=== PATIENT | male | born 1940 | race Caucasian/White ===

== ENCOUNTER 2018-03-15 12:35 | Inpatient (IN) | payer MEDICARE ==
[~2018-03-15] VITALS: Ht 185.4 cm; Wt 75.7 kg
[2018-03-15] MEDS ORDERED: DIPH,PERTUSS(ACELL),TET VAC/PF 0.5 ML IM-VACC ONE ×2 (13:00→14:00)
[2018-03-15] MEDS ORDERED: SODIUM CHLORIDE FLUSH 10ML SYR IVF ONE (13:00)
[2018-03-15 13:06] LABS: BASOPHILS # (AUTO) 0.04 x10^3/uL (0-0.1); BASOPHILS % (AUTO) 0 % (0-1); EOSINOPHILS # (AUTO) 0.23 x10^3/uL (0-0.4); EOSINOPHILS % (AUTO) 3 % (1-7); LYMPHOCYTES # (AUTO) 1.46 x10^3/uL (1-3.4); LYMPHOCYTES % (AUTO) 18 % (22-44); MD NO; MEAN CORPUSCULAR HEMOGLOBIN 29.2 pg (27.5-34.5); MEAN CORPUSCULAR HGB CONC 33.3 g/dL (33.2-36.2); MEAN CORPUSCULAR VOLUME 87.7 fL (81-97); MEAN PLATELET VOLUME 8.7 fL (7.4-10.4); MONOCYTES % (AUTO) 5 % (2-9); NEUTROPHILS # (AUTO) 6.02 x10^3/uL (1.8-6.8); NEUTROPHILS % (AUTO) 74 % (42-75); PLATELET COUNT 206 x10^3/uL (130-400); RED BLOOD COUNT 5.59 x10^6/uL (4.38-5.82); RED CELL DISTRIBUTION WIDTH 14.5 % (9.4-14.8)
[2018-03-15 13:14] LABS: INTERNATIONAL NORMALIZED RATIO 1.03 (0.93-1.1); PROTHROMBIN TIME 10.7 Seconds (9.6-11.5)
[2018-03-15 13:18] LABS: ALBUMIN 3.9 g/dL (3.4-5.0); ANION GAP 9 mmol/L (5-15); CALCIUM 8.6 mg/dL (8.5-10.1); CHLORIDE 105 mmol/L (98-107)
[2018-03-15 13:23] LABS: ALANINE AMINOTRANSFERASE 20 U/L (12-78); ALKALINE PHOSPHATASE 97 U/L (45-117); BILIRUBIN,TOTAL 0.6 mg/dL (0.2-1.0); CREATININE 0.88 mg/dL (0.7-1.3); TOTAL PROTEIN 7.8 g/dL (6.4-8.2); TROPONIN I < 0.015 ng/mL (0.000-0.045)
[2018-03-15] MEDS ORDERED: LISINOPRIL 10 MG TABLET PO ONE (14:00)
[2018-03-15] MEDS ORDERED: LISINOPRIL 10 MG TABLET ONE (14:00)
[2018-03-15] MEDS ORDERED: SODIUM CHLORIDE FLUSH 10ML SYR IVF PRN (14:30)
[2018-03-15] MEDS ORDERED: LABETALOL 5MG/ML, 20ML IVPush PRN (15:30)
[2018-03-15] MEDS ORDERED: hydrALAzine 20 MG/ML, 1ML IVPush PRN (15:30)
[2018-03-15] MEDS ORDERED: ACETAMINOPHEN 325 MG TABLET PO PRN (15:30)
[2018-03-15 15:59] VITALS: BP 197/76
[2018-03-15] MEDS ORDERED: LABETALOL 5MG/ML, 20ML ONE (16:02)
[2018-03-15] MEDS ORDERED: CARVEDILOL 6.25 MG TABLET ONE (16:02)
[2018-03-15] MEDS: CARVEDILOL 6.25 MG TABLET PO SCH (16:06)
[2018-03-15 16:11] VITALS: BP 173/82
[2018-03-15] MEDS ORDERED: HYDROCHLOROTHIAZIDE 25 MG TABLET PO ONE (16:30)
[2018-03-15] MEDS ORDERED: ENOXAPARIN 40 MG/0.4 ML SQ SCH (16:30)
[2018-03-15 16:33] VITALS: BP 152/74
[2018-03-15] MEDS: LACTATED RINGERS 1,000 ML IV SCH (16:36)
[2018-03-15 19:14] VITALS: BP 164/76
[2018-03-16] VITALS (7 sets, daily range): BP systolic 121–160; BP diastolic 70–80
[2018-03-16] MEDS: LACTATED RINGERS 1,000 ML IV SCH
[2018-03-16 05:24] LABS: BASOPHILS # (AUTO) 0.06 x10^3/uL (0-0.1); BASOPHILS % (AUTO) 1 % (0-1); EOSINOPHILS # (AUTO) 0.32 x10^3/uL (0-0.4); EOSINOPHILS % (AUTO) 4 % (1-7); LYMPHOCYTES # (AUTO) 1.93 x10^3/uL (1-3.4); LYMPHOCYTES % (AUTO) 21 % (22-44); MD NO; MEAN CORPUSCULAR HGB CONC 33.5 g/dL (33.2-36.2); MEAN CORPUSCULAR VOLUME 86.4 fL (81-97); MEAN PLATELET VOLUME 8.9 fL (7.4-10.4); MONOCYTES # (AUTO) 0.65 x10^3/uL (0.2-0.8); MONOCYTES % (AUTO) 7 % (2-9); NEUTROPHILS # (AUTO) 6.21 x10^3/uL (1.8-6.8); NEUTROPHILS % (AUTO) 68 % (42-75); PLATELET COUNT 186 x10^3/uL (130-400); RED BLOOD COUNT 5.43 x10^6/uL (4.38-5.82); RED CELL DISTRIBUTION WIDTH 14.6 % (9.4-14.8)
[2018-03-16 05:32] LABS: ANION GAP 9 mmol/L (5-15); CALCIUM 8.8 mg/dL (8.5-10.1); CHLORIDE 106 mmol/L (98-107)
[2018-03-16] MEDS: CARVEDILOL 6.25 MG TABLET PO SCH (05:57)
[2018-03-16] MEDS ORDERED: HYDROCHLOROTHIAZIDE 25 MG TABLET PO SCH (09:00)
[2018-03-16] MEDS ORDERED: HYDR25TA6 PO (10:13)
[2018-03-16] MEDS ORDERED: CARV6.2512 PO (10:13)
== END 2018-03-16 14:02 | disposition home or self-care (01) | DRG 305 ==
LOC: ED 14:04 → EDIP 14:09 → ED 14:22 → 5SO 15:50 → DCLOUNGE 03-16 13:54
PROVIDERS: ADMIT Hospitalist; ATTEND Hospitalist
DX: I16.0 Hypertensive urgency (principal); E86.0 Dehydration; I35.8 Other nonrheumatic aortic valve disorders; E86.1 Hypovolemia; R00.0 Tachycardia, unspecified; Z66 Do not resuscitate; W18.39XA Other fall on same level, initial encounter; I10 Essential (primary) hypertension; Z79.899 Other long term (current) drug therapy; Y93.89 Activity, other specified; Y92.89 Other specified places as the place of occurrence of the external cause; Y99.8 Other external cause status
CPT/HCPCS: 36415; 70450; 70486; 71045; 80048; 80053; 83735; 84484; 85025; 85610; 85730; 93005; 93306; 99285; J1650; J7120

== ENCOUNTER 2019-09-14 09:38 | Observation (INO) | payer MEDICARE, MEDICAID ==
[~2019-09-14] VITALS: Ht 180.3 cm; Wt 63.8 kg
[~2019-09-14 09:38] MED LIST: CARV6.2512 PO; HYDR25TA6 PO
--- NOTE | 2019-09-14 09:54 | NUR ---
"NO CODE NEURO" PER DR HOLLOWAY HE ASSESSED PT IN TRIAGE
--- NOTE | 2019-09-14 10:00 | NUR ---
PATIENT BROUGHT BACK FROM TRIAGE WITH CHIEF COMPLAINT OF FEELING OFF, PATIENT STATES HE DEVELOPED A STUTTER SPEAKING AND TREMORS THIS MORNING. THE PATIENT IS ALERT, ORIENTED, WARM, & DRY. SPEACH HAS IMPROVED, HOWEVER TREMORS STILL PRESENT. NO OTHER NEURO DEFECITS AT THIS TIME, NO CP, SOB, OR N/V.
[2019-09-14 10:19] LABS: BASOPHILS # (AUTO) 0.04 x10^3/uL (0-0.1); BASOPHILS % (AUTO) 0 % (0-1); EOSINOPHILS # (AUTO) 0.35 x10^3/uL (0-0.4); EOSINOPHILS % (AUTO) 4 % (1-7); LYMPHOCYTES # (AUTO) 1.55 x10^3/uL (1-3.4); LYMPHOCYTES % (AUTO) 19 % (22-44); MD NO; MEAN CORPUSCULAR HEMOGLOBIN 29.7 pg (27.5-34.5); MEAN CORPUSCULAR HGB CONC 32.9 g/dL (33.2-36.2); MEAN PLATELET VOLUME 8.6 fL (7.4-10.4); MONOCYTES # (AUTO) 0.36 x10^3/uL (0.2-0.8); MONOCYTES % (AUTO) 4 % (2-9); NEUTROPHILS % (AUTO) 72 % (42-75); PLATELET COUNT 242 x10^3/uL (130-400); RED BLOOD COUNT 5.45 x10^6/uL (4.38-5.82); RED CELL DISTRIBUTION WIDTH 15.5 % (9.4-14.8)
[2019-09-14 10:30] LABS: ALANINE AMINOTRANSFERASE 17 U/L (12-78); ALBUMIN 4.2 g/dL (3.4-5.0); ANION GAP 9 mmol/L (5-15); CALCIUM 8.7 mg/dL (8.5-10.1); CHLORIDE 104 mmol/L (98-107); CREATININE 0.89 mg/dL (0.7-1.3)
[2019-09-14 10:34] LABS: ALKALINE PHOSPHATASE 103 U/L (45-117); BILIRUBIN,TOTAL 0.7 mg/dL (0.2-1.0); TOTAL PROTEIN 8.1 g/dL (6.4-8.2); TROPONIN I < 0.015 ng/mL (0.000-0.045)
--- NOTE | 2019-09-14 10:45 | NUR ---
PATIENT TO CT
[2019-09-14 10:57] LABS: FREE T4 (FREE THYROXINE) 1.04 ng/dL (0.76-1.46)
[2019-09-14 11:09] LABS: CULTURE INDICATED? YES; MICROSCOPIC INDICATED
--- NOTE | 2019-09-14 11:23 | NUR ---
PATIENT RESTING IN BED
[2019-09-14] MEDS ORDERED: CEFTRIAXONE PMX 1GM/50ML 50 ML IV ONE (12:00)
[2019-09-14] MEDS ORDERED: CEFTRIAXONE PMX 1GM/50ML 50 ML ONE (12:02)
--- NOTE | 2019-09-14 12:46 | NUR ---
Patient is resting comfortably in bed. CALL LIGHT IN REACH Vital Signs within normal limits.
--- NOTE | 2019-09-14 13:10 | NUR ---
REPORT CALLED TO NEL HANCOCK. PATIENT UPDATED ON POC.
[2019-09-14] MEDS: CEFTRIAXONE PMX 1GM/50ML 50 ML IV SCH (14:30)
[2019-09-14] MEDS ORDERED: ACETAMINOPHEN 325 MG TABLET PO PRN (14:30)
[2019-09-14 16:49] LABS: HEMOGLOBIN A1C 5.6 % (4.2-6.3)
[2019-09-14] MEDS: CARVEDILOL 6.25 MG TABLET PO SCH (17:31)
[2019-09-14 19:06] VITALS: BP 179/92
[2019-09-14] MEDS ORDERED: hydrALAzine 20 MG/ML, 1ML IV ONE (19:30)
[2019-09-15 00:33] VITALS: BP 123/64
[2019-09-15 05:27] LABS: BASOPHILS # (AUTO) 0.05 x10^3/uL (0-0.1); BASOPHILS % (AUTO) 1 % (0-1); EOSINOPHILS # (AUTO) 0.39 x10^3/uL (0-0.4); EOSINOPHILS % (AUTO) 5 % (1-7); LYMPHOCYTES # (AUTO) 1.77 x10^3/uL (1-3.4); LYMPHOCYTES % (AUTO) 21 % (22-44); MD NO; MEAN CORPUSCULAR HEMOGLOBIN 29.5 pg (27.5-34.5); MEAN CORPUSCULAR HGB CONC 32.8 g/dL (33.2-36.2); MEAN PLATELET VOLUME 8.5 fL (7.4-10.4); MONOCYTES % (AUTO) 7 % (2-9); NEUTROPHILS # (AUTO) 5.76 x10^3/uL (1.8-6.8); NEUTROPHILS % (AUTO) 67 % (42-75); PLATELET COUNT 217 x10^3/uL (130-400); RED BLOOD COUNT 5.09 x10^6/uL (4.38-5.82); RED CELL DISTRIBUTION WIDTH 15.2 % (9.4-14.8)
[2019-09-15] MEDS: LEVOTHYROXINE 25 MCG TABLET PO SCH (05:32)
[2019-09-15] MEDS: CARVEDILOL 6.25 MG TABLET PO SCH ×2 (05:33→20:14)
[2019-09-15 05:35] LABS: ANION GAP 6 mmol/L (5-15); CALCIUM 8.4 mg/dL (8.5-10.1); CHLORIDE 109 mmol/L (98-107)
[2019-09-15 05:36] LABS: CREATININE 0.65 mg/dL (0.7-1.3)
[2019-09-15 06:57] VITALS: BP 130/75
[2019-09-15 12:58] VITALS: BP 128/72
[2019-09-15] MEDS: CEFTRIAXONE PMX 1GM/50ML 50 ML IV SCH (14:34)
[2019-09-15] MEDS: CEFAZOLIN PMX 1GM/50ML 50 ML IV SCH ×2 (16:20→23:55)
[2019-09-15] MEDS ORDERED: ENOXAPARIN 40 MG/0.4 ML SQ SCH (16:30)
[2019-09-15 18:37] VITALS: BP 157/74
[2019-09-16 04:46] VITALS: BP 144/82
[2019-09-16] MEDS: CARVEDILOL 6.25 MG TABLET PO SCH (05:26)
[2019-09-16] MEDS: LEVOTHYROXINE 25 MCG TABLET PO SCH (05:27)
[2019-09-16 06:44] VITALS: BP 118/62
[2019-09-16] MEDS: CEFAZOLIN PMX 1GM/50ML 50 ML IV SCH (07:31)
[2019-09-16] MEDS ORDERED: CEPH-368 PO (09:58)
[2019-09-16 12:09] VITALS: BP 150/77
== END 2019-09-16 13:27 | disposition home or self-care (01) ==
LOC: ED 13:03 → INTOOBSV 13:04 → EDIP 13:04 → UNDOADMOB 13:04 → EDIP 13:27 → 3N 13:27 → DCLOUNGE 09-16 13:25
PROVIDERS: ADMIT Internal Medicine; ATTEND Internal Medicine
DX: N30.91 Cystitis, unspecified with hematuria (principal); R53.1 Weakness; G31.9 Degenerative disease of nervous system, unspecified; I10 Essential (primary) hypertension; E03.9 Hypothyroidism, unspecified; R73.01 Impaired fasting glucose
CPT/HCPCS: 36415; 70450; 71045; 80048; 80053; 81001; 83036; 84439; 84443; 84484; 85025; 87077; 87086; 87186; 93005; 96365; 96366; 96367; 96375; 97162; 97165; 99284; G0378; J0360; J0690; J0696

== ENCOUNTER 2019-09-30 15:00 | Emergency (ER) | payer MEDICAID, MEDICARE ==
[~2019-09-30] VITALS: Ht 180.3 cm; Wt 68.2 kg
[~2019-09-30 15:00] MED LIST changes: +CEPH-368 PO
--- NOTE | 2019-09-30 15:00 | NUR ---
[facility]. NO TRAUMA, DID NOT HIT HEAD, NO LOC. PT STATES, "MY LEGS JUST GIVE OUT AND I GO DOWN". PT STATES HE WAS HERE FOR SAME COMPLAINT ABOUT A WEEK AGO AND "THE ONLY THING THEY FOUND WAS A UTI". PT STATES HE COMPLETED THE COURSE OF ABX. PER EMS, PT TACHY WITH HR 120s, IMPROVED TO 100s AFTER 250ML BOLUS OF NS. BS 108. OTHER VSS. PT HAS HX HTN AND HYPOTHYROID. ERP AT BS IMMEDIATELY. ERP DISCUSSED WALKER USAGE WITH PT.
--- NOTE | 2019-09-30 15:22 | NUR ---
PT AMBULATED TO BR WITHOUT DIFFICULTY. INSTRUCTED ON CLEAN CATCH URINE SAMPLE.
[2019-09-30 15:26] LABS: BASOPHILS # (AUTO) 0.06 x10^3/uL (0-0.1); BASOPHILS % (AUTO) 1 % (0-1); EOSINOPHILS # (AUTO) 0.18 x10^3/uL (0-0.4); EOSINOPHILS % (AUTO) 2 % (1-7); LYMPHOCYTES # (AUTO) 1.36 x10^3/uL (1-3.4); LYMPHOCYTES % (AUTO) 18 % (22-44); MD NO; MEAN CORPUSCULAR HEMOGLOBIN 29.6 pg (27.5-34.5); MEAN CORPUSCULAR HGB CONC 32.9 g/dL (33.2-36.2); MEAN CORPUSCULAR VOLUME 89.8 fL (81-97); MEAN PLATELET VOLUME 8.6 fL (7.4-10.4); MONOCYTES # (AUTO) 0.47 x10^3/uL (0.2-0.8); MONOCYTES % (AUTO) 6 % (2-9); NEUTROPHILS # (AUTO) 5.58 x10^3/uL (1.8-6.8); NEUTROPHILS % (AUTO) 73 % (42-75); PLATELET COUNT 204 x10^3/uL (130-400); RED BLOOD COUNT 4.78 x10^6/uL (4.38-5.82); RED CELL DISTRIBUTION WIDTH 15.2 % (9.4-14.8)
[2019-09-30 15:34] LABS: ALANINE AMINOTRANSFERASE 21 U/L (12-78); ALBUMIN 3.7 g/dL (3.4-5.0); ANION GAP 8 mmol/L (5-15); CALCIUM 8.2 mg/dL (8.5-10.1); CHLORIDE 108 mmol/L (98-107); CREATININE 0.87 mg/dL (0.7-1.3)
[2019-09-30 15:37] LABS: ALKALINE PHOSPHATASE 83 U/L (45-117); BILIRUBIN,TOTAL 0.7 mg/dL (0.2-1.0); TOTAL PROTEIN 7.1 g/dL (6.4-8.2)
--- NOTE | 2019-09-30 15:44 | NUR ---
PT STATES HE'S UNABLE TO VOID "ON COMMAND". ERP NOTIFIED, STRAIGHT CATH DONE PER ORDERS, PT TOLERATED WELL.
[2019-09-30 15:53] LABS: MICROSCOPIC AUTO
[2019-09-30 16:13] LABS: CULTURE INDICATED? NO
[2019-09-30 16:40] VITALS: BP 137/73
--- NOTE | 2019-09-30 16:43 | NUR ---
INSTRUCTED PT ON WALKER USE, HE DEMONSTRATES UNDERSTANDING. D/C INSTRUCTIONS & F/U APPT RV'WD WITH PT. PT AMBULATED OUT OF ED WITH WALKER. CAB VOUCHER PROVIDED TO PT HE HAS NO TRANSPORTATION HOME.
== END 2019-09-30 16:53 | disposition home or self-care (01) ==
LOC: ED 15:45
DX: S80.212A Abrasion, left knee, initial encounter (principal); S80.211A Abrasion, right knee, initial encounter; M62.81 Muscle weakness (generalized); I10 Essential (primary) hypertension; E03.9 Hypothyroidism, unspecified; W18.30XA Fall on same level, unspecified, initial encounter; Y92.009 Unspecified place in unspecified non-institutional (private) residence as the place of occurrence of the external cause; Y99.8 Other external cause status; Y93.89 Activity, other specified
CPT/HCPCS: 36415; 71045; 80053; 81001; 85025; 93005; 99284

== ENCOUNTER 2020-05-30 11:15 | Inpatient (IN) | payer MEDICARE, MEDICAID ==
[~2020-05-30] VITALS: Ht 182.9 cm; Wt 73.7 kg
[2020-05-30] MEDS ORDERED: SODIUM CHLORIDE FLUSH 10ML SYR IVF ONE (11:30)
[2020-05-30] MEDS ORDERED: ASPIRIN 81 MG TABLET CHEW PO ONE (11:30)
[2020-05-30] MEDS ORDERED: ASPIRIN 81 MG TABLET CHEW ONE (11:35)
[2020-05-30] MEDS ORDERED: HEPARIN 5,000 UNITS/ML, 1ML IV PRN ×2 (12:00→20:30)
[2020-05-30] MEDS ORDERED: HEPARIN 25,000 UNITS/250ML PMX 250 ML IV PRN (12:00)
[2020-05-30] MEDS ORDERED: HEPARIN 5,000 UNITS/ML, 1ML IV ONE (12:00)
--- NOTE | 2020-05-30 12:01 | NUR ---
79 Y/O MALE PRESENTS TO ED WITH C/O CP. PER PT "WHEN I WALK MY CHEST HURTS. I DON'T GET SOB, IT JUST HURTS. IT'S BEEN LIKE THIS FOR ABOUT 2 WEEKS." NADN. PT PLACED ON CONT PULSE OX,NIBP, PIPE STEM ALIGNER. NO C/O N/V/D, TRAUMA, SOB, SYNCOPE. TWO PIV'S ESTABLISHED. PT TOLERATED WITH NO COMPLICATIONS.
[2020-05-30 12:13] LABS: BASOPHILS # (AUTO) 0.03 x10^3/uL (0-0.1); BASOPHILS % (AUTO) 0 % (0-1); EOSINOPHILS # (AUTO) 0.05 x10^3/uL (0-0.4); EOSINOPHILS % (AUTO) 1 % (1-7); LYMPHOCYTES # (AUTO) 1.45 x10^3/uL (1-3.4); LYMPHOCYTES % (AUTO) 18 % (22-44); MD NO; MEAN CORPUSCULAR HGB CONC 33.5 g/dL (33.2-36.2); MEAN PLATELET VOLUME 9.3 fL (7.4-10.4); MONOCYTES % (AUTO) 5 % (2-9); NEUTROPHILS # (AUTO) 6.16 x10^3/uL (1.8-6.8); NEUTROPHILS % (AUTO) 76 % (42-75); PLATELET COUNT 226 x10^3/uL (130-400); RED BLOOD COUNT 5.35 x10^6/uL (4.38-5.82); RED CELL DISTRIBUTION WIDTH 14.3 % (9.4-14.8)
[2020-05-30 12:20] LABS: INTERNATIONAL NORMALIZED RATIO 1.03 (0.93-1.1); PROTHROMBIN TIME 10.9 Seconds (9.6-11.5)
--- NOTE | 2020-05-30 12:20 | NUR ---
PT STATES HE TAKES SOMETHING FOR HIS THYROID AND BP BUT DOESN'T KNOW THE NAMES.
[2020-05-30 12:21] LABS: ALBUMIN 4.6 g/dL (3.4-5.0); ANION GAP 6 mmol/L (5-15); CALCIUM 10.2 mg/dL (8.5-10.1); CHLORIDE 103 mmol/L (98-107)
[2020-05-30 12:28] LABS: ALANINE AMINOTRANSFERASE 16 U/L (12-78); ALKALINE PHOSPHATASE 84 U/L (45-117); CREATININE 1.29 mg/dL (0.7-1.3); TOTAL PROTEIN 8.5 g/dL (6.4-8.2); TROPONIN I 0.031 ng/mL (0.000-0.045)
--- NOTE | 2020-05-30 12:41 | NUR ---
REPORT TO KARISSA HALL. ALL QUESTIONS ANSWERED. Addendum: 05/30/20 at 1244 by CROW RECEIVING RN AWARE OF HEPARIN NEEDING TO BE STARTED.
--- NOTE | 2020-05-30 12:48 | NUR ---
PT BEING TRANSFERRED TO FLOOR. PT LEFT WITH ALL PERSONAL BELONGINGS. PT VERVBALIZES UNDERSTANDING REGARDING NPO STATUS.
[2020-05-30] MEDS ORDERED: LIDODERM 5% PATCH TD PRN (13:00)
[2020-05-30] MEDS ORDERED: BISACODYL 10 MG SUPP PR PRN (13:00)
[2020-05-30] MEDS ORDERED: ONDANSETRON ODT 4 MG PO PRN (13:00)
[2020-05-30] MEDS ORDERED: hydrALAzine 20 MG/ML, 1ML IVPush PRN (13:00)
[2020-05-30] MEDS ORDERED: POLYETHYLENE GLYCOL 17 GM PACKET PO PRN (13:00)
[2020-05-30] MEDS ORDERED: ACETAMINOPHEN 325 MG TABLET PO PRN ×2 (13:00→16:30)
[2020-05-30] MEDS: SODIUM CHLORIDE 0.9% 1,000 ML IV SCH ×2 (14:00→15:12)
[2020-05-30] MEDS ORDERED: BIVALIRUDIN 250 MG ONE (14:06)
[2020-05-30] MEDS ORDERED: MIDAZOLAM 1 MG/ML, 5ML ONE (14:06)
[2020-05-30] MEDS ORDERED: VERAPAMIL 2.5 MG/ML, 2ML ONE (14:06)
[2020-05-30] MEDS ORDERED: FENTANYL PF 100 MCG/2ML ONE (14:06)
[2020-05-30] MEDS ORDERED: LIDOCAINE-MPF 1%, 5ML ONE (14:06)
[2020-05-30] MEDS ORDERED: CLOPIDOGREL 300 MG TABLET ONE (14:07)
[2020-05-30] MEDS ORDERED: HEPARIN 1,000 UNITS/ML, 10ML ONE (14:07)
[2020-05-30 15:57] LABS: HCT (SEDRATE) 42.3 % (39.2-51.8)
[2020-05-30 16:09] LABS: TROPONIN I 0.123 ng/mL (0.000-0.045)
[2020-05-30] MEDS ORDERED: CHLORHEXIDINE 15 ML UDC MM PRN (16:30)
[2020-05-30 16:52] LABS: BASOPHILS # (AUTO) 0.04 x10^3/uL (0-0.1); BASOPHILS % (AUTO) 1 % (0-1); EOSINOPHILS # (AUTO) 0.07 x10^3/uL (0-0.4); EOSINOPHILS % (AUTO) 1 % (1-7); LYMPHOCYTES # (AUTO) 1.66 x10^3/uL (1-3.4); LYMPHOCYTES % (AUTO) 21 % (22-44); MD NO; MEAN CORPUSCULAR HEMOGLOBIN 29.8 pg (27.5-34.5); MEAN CORPUSCULAR HGB CONC 33.1 g/dL (33.2-36.2); MEAN PLATELET VOLUME 9.4 fL (7.4-10.4); MONOCYTES # (AUTO) 0.51 x10^3/uL (0.2-0.8); MONOCYTES % (AUTO) 7 % (2-9); NEUTROPHILS # (AUTO) 5.48 x10^3/uL (1.8-6.8); NEUTROPHILS % (AUTO) 71 % (42-75); PLATELET COUNT 209 x10^3/uL (130-400); RED BLOOD COUNT 4.64 x10^6/uL (4.38-5.82); RED CELL DISTRIBUTION WIDTH 14.3 % (9.4-14.8)
[2020-05-30] MEDS ORDERED: LEVO88TA2 PO (18:28)
[2020-05-30] MEDS ORDERED: LOSA100T14 PO (18:28)
[2020-05-30 19:04] LABS: ANION GAP 6 mmol/L (5-15); CALCIUM 8.3 mg/dL (8.5-10.1); CHLORIDE 107 mmol/L (98-107)
[2020-05-30 19:05] LABS: ALANINE AMINOTRANSFERASE 12 U/L (12-78); ALBUMIN 3.6 g/dL (3.4-5.0)
[2020-05-30 19:07] LABS: ALKALINE PHOSPHATASE 64 U/L (45-117); BILIRUBIN,TOTAL 0.9 mg/dL (0.2-1.0); TOTAL PROTEIN 6.9 g/dL (6.4-8.2)
[2020-05-30 19:09] LABS: TROPONIN I 0.186 ng/mL (0.000-0.045)
[2020-05-30 19:33] VITALS: BP 116/62
[2020-05-30] MEDS: SODIUM CHLORIDE FLUSH 10ML SYR IVF SCH (21:45)
[2020-05-30] MEDS: FAMOTIDINE 20 MG TABLET PO SCH (21:45)
[2020-05-30] MEDS: MUPIROCIN OINT 2%, 22GM TP SCH (21:45)
[2020-05-31] MEDS ORDERED: LIDODERM REMOVE PATCH NOTE XX SCH (01:00)
[2020-05-31] MEDS: SODIUM CHLORIDE 0.9% 1,000 ML IV SCH ×2 (02:18→04:45)
[2020-05-31 04:30] LABS: MICROSCOPIC INDICATED
[2020-05-31] MEDS: MUPIROCIN OINT 2%, 22GM TP SCH ×2 (04:43→19:31)
[2020-05-31 04:56] VITALS: BP_SYST 135; BP_DIAS 75; BP_DIAS 78
[2020-05-31 05:17] LABS: BASOPHILS # (AUTO) 0.07 x10^3/uL (0-0.1); BASOPHILS % (AUTO) 1 % (0-1); EOSINOPHILS # (AUTO) 0.24 x10^3/uL (0-0.4); EOSINOPHILS % (AUTO) 3 % (1-7); LYMPHOCYTES # (AUTO) 2.09 x10^3/uL (1-3.4); LYMPHOCYTES % (AUTO) 29 % (22-44); MD NO; MEAN CORPUSCULAR HEMOGLOBIN 29.9 pg (27.5-34.5); MEAN CORPUSCULAR HGB CONC 33.2 g/dL (33.2-36.2); MEAN PLATELET VOLUME 9.6 fL (7.4-10.4); MONOCYTES # (AUTO) 0.52 x10^3/uL (0.2-0.8); MONOCYTES % (AUTO) 7 % (2-9); NEUTROPHILS # (AUTO) 4.22 x10^3/uL (1.8-6.8); NEUTROPHILS % (AUTO) 59 % (42-75); PLATELET COUNT 180 x10^3/uL (130-400); RED CELL DISTRIBUTION WIDTH 14.5 % (9.4-14.8)
[2020-05-31 05:29] LABS: CHLORIDE 105 mmol/L (98-107)
[2020-05-31 05:35] LABS: ALANINE AMINOTRANSFERASE 11 U/L (12-78); ALBUMIN 3.4 g/dL (3.4-5.0); ALKALINE PHOSPHATASE 65 U/L (45-117); ANION GAP 7 mmol/L (5-15); BILIRUBIN,TOTAL 0.8 mg/dL (0.2-1.0); CHOLESTEROL, TOTAL 166 mg/dL (140-239); CREATININE 0.93 mg/dL (0.7-1.3); HDL CHOL % 20 % (26-37); HDL CHOLESTEROL (DIRECT) 33 mg/dL (40-60); LDL CHOLESTEROL,CALCULATED 118 mg/dL (54-169); LDL/HDL RATIO 3.6 (0.5-3.0); TOTAL PROTEIN 6.6 g/dL (6.4-8.2); TRIGLYCERIDES 75 mg/dL (50-200); VLDL CHOLESTEROL 15 mg/dL (0-25)
[2020-05-31] MEDS ORDERED: METOPROLOL TARTRATE 25 MG TAB PO ONE (06:00)
[2020-05-31] MEDS ORDERED: HEPARIN 1,000 UNITS/ML, 10ML ONE (06:29)
[2020-05-31] MEDS ORDERED: PAPAVERINE 30 MG/ML, 2ML ONE ×2 (06:29→10:08)
[2020-05-31] MEDS ORDERED: MIDAZOLAM 10MG/2 ML ONE (06:43)
[2020-05-31] MEDS ORDERED: FENTANYL PF 250 MCG/5ML ONE ×4 (06:44)
[2020-05-31] MEDS ORDERED: PROPOFOL 10 MG/ML, 20ML ONE (06:50)
[2020-05-31] MEDS ORDERED: ROCURONIUM 10MG/ML,5ML ONE ×2 (06:50)
[2020-05-31] MEDS ORDERED: AMINOCAPROIC ACID 250 MG/ML, 20ML ONE ×3 (06:50→12:39)
[2020-05-31] MEDS ORDERED: INSULIN LISPRO 100 UNITS/ML, PEN SQ-INSULIN SCH (07:00)
[2020-05-31] MEDS ORDERED: ALBUMIN HUMAN 5% 500 ML IV PRN (07:30)
[2020-05-31] MEDS ORDERED: MANNITOL PMX 20% 500 ML IVPB PRN (07:30)
[2020-05-31] MEDS ORDERED: VANCOMYCIN 1,000 MG in SODIUM CHLORIDE 0.9% 250 ML IVPB PRN (07:30)
[2020-05-31] MEDS ORDERED: EPINEPHRINE 5 MG in SODIUM CHLORIDE 0.9% 245 ML IV PRN ×2 (07:30→15:00)
[2020-05-31] MEDS ORDERED: PHENYLEPHRINE 50 MG in SODIUM CHLORIDE 0.9% 245 ML IV PRN ×2 (07:30→14:36)
[2020-05-31] MEDS ORDERED: CEFUROXIME 1.5 GM in SODIUM CHLORIDE 0.9% 50 ML IVPB PRN (07:30)
[2020-05-31] MEDS ORDERED: REGULAR INSULIN 100 UNITS in SODIUM CHLORIDE 0.9% 99 ML IV PRN ×2 (07:30→14:36)
[2020-05-31] MEDS ORDERED: DEXMEDETOMIDINE 200 MCG in SODIUM CHLORIDE 0.9% 48 ML IV PRN ×2 (07:30→14:36)
[2020-05-31] MEDS ORDERED: POTASSIUM CHLORIDE 80 MEQ, SODIUM BICARBONATE 8.4% 10 MEQ, MAGNESIUM SULFATE 0.5 GM, LI... IV PRN (07:30)
[2020-05-31] MEDS ORDERED: METOPROLOL 1 MG/ML, 5ML ONE (07:31)
[2020-05-31] MEDS ORDERED: MAGNESIUM SULFATE PMX 2GM/50ML 50 ML ONE (08:59)
[2020-05-31] MEDS: FAMOTIDINE 20 MG TABLET PO SCH ×2 (09:00→20:38)
[2020-05-31] MEDS: SODIUM CHLORIDE FLUSH 10ML SYR IVF SCH ×3 (09:00→19:30)
[2020-05-31] MEDS: DOCUSATE 100 MG CAPSULE PO SCH ×2 (09:00→20:38)
[2020-05-31] MEDS ORDERED: PHENYLEPHRINE 10 MG/ML ONE (09:32)
[2020-05-31] MEDS ORDERED: EPINEPHRINE 1 MG/ML, 1ML ONE (09:32)
[2020-05-31] MEDS ORDERED: PROTAMINE SULFATE 10 MG/ML, 25ML ONE ×2 (11:02→11:04)
[2020-05-31] MEDS ORDERED: HEPARIN 25,000 UNITS/250ML PMX 250 ML IV PRN (12:00)
[2020-05-31] MEDS ORDERED: AMIODARONE 50 MG/ML, 3ML ONE (13:03)
[2020-05-31] MEDS ORDERED: NITROGLYCERIN/D5W PMX 250 ML IV PRN (14:36)
[2020-05-31] MEDS ORDERED: SODIUM CHLORIDE 0.9% 1,000 ML IV PRN (14:36)
[2020-05-31] MEDS ORDERED: DOBUTAMINE 250 MG in SODIUM CHLORIDE 0.9% 230 ML IV PRN (14:36)
[2020-05-31] MEDS ORDERED: VASOPRESSIN 20 UNIT in SODIUM CHLORIDE 0.9% 99 ML IV PRN (14:36)
[2020-05-31] MEDS ORDERED: CALCIUM CHLORIDE 10%, 10ML SYR ONE (14:55)
[2020-05-31] MEDS ORDERED: SODIUM BICARBONATE 1 MEQ/ML, 50ML VIAL ONE (14:55)
[2020-05-31] MEDS ORDERED: HEPARIN 1,000 UNITS/ML, 30ML ONE (14:56)
[2020-05-31] MEDS ORDERED: ALBUMIN HUMAN 25% 50 ML ONE (14:56)
[2020-05-31] MEDS ORDERED: LIDOCAINE 2%, 20ML ONE (14:56)
[2020-05-31] MEDS ORDERED: SODIUM BICARB 8.4%, 50ML SYRINGE ONE (14:57)
[2020-05-31] MEDS ORDERED: CEFUROXIME 1.5 GM in SODIUM CHLORIDE 0.9% 50 ML IVPB SCH (15:00)
[2020-05-31] MEDS ORDERED: BISACODYL 10 MG SUPP PR PRN (15:00)
[2020-05-31] MEDS ORDERED: ONDANSETRON 2MG/ML, 2ML IVPush PRN (15:00)
[2020-05-31] MEDS ORDERED: ACETAMINOPHEN 650 MG SUPP PR PRN (15:00)
[2020-05-31] MEDS ORDERED: GLUCAGON 1 MG IM PRN (15:00)
[2020-05-31] MEDS ORDERED: MAGNESIUM SULFATE 1 GM in SODIUM CHLORIDE 0.9% 100 ML IVPB SCH (15:00)
[2020-05-31] MEDS ORDERED: ACETAMINOPHEN 325 MG TABLET PO PRN (15:00)
[2020-05-31] MEDS: KSCALE TO 4.5 IV SCH ×2 (15:00→21:00)
[2020-05-31] MEDS ORDERED: MIDAZOLAM 1 MG/ML, 5ML IVPush PRN (15:00)
[2020-05-31] MEDS ORDERED: LACTATED RINGERS 1,000 ML IV PRN (15:00)
[2020-05-31] MEDS ORDERED: SODIUM BICARB 8.4%, 50ML SYRINGE IV PRN (15:00)
[2020-05-31] MEDS ORDERED: INSULIN REGULAR 100 UNITS/ML, 3ML VIAL IVPush PRN (15:00)
[2020-05-31] MEDS ORDERED: PROCHLORPERAZINE 5 MG/ML, 2ML IVPush PRN (15:00)
[2020-05-31] MEDS ORDERED: DEXTROSE 4 GM TAB.CHEW PO PRN (15:00)
[2020-05-31] MEDS ORDERED: BISACODYL 5 MG EC TABLET PO PRN (15:00)
[2020-05-31] MEDS ORDERED: DEXTROSE 50%, 50ML SYRINGE IVPush PRN (15:00)
[2020-05-31 15:15] LABS: GLUCOSE BY BLOOD GAS ANALYZER 143 mg/dL (70-110); POTASSIUM BY BLOOD GAS ANALYZR 3.4 mmol/L (3.6-5.5)
[2020-05-31 15:56] LABS: INTERNATIONAL NORMALIZED RATIO 1.32 (0.93-1.1)
[2020-05-31] MEDS ORDERED: POTASSIUM CHLORIDE 30 MEQ in SODIUM CHLORIDE 0.9% 100 ML IV ONE (16:00)
[2020-05-31] MEDS: INSULIN LISPRO 100 UNITS/ML, PEN SQ-INSULIN SCH ×3 (17:04→23:25)
[2020-05-31] MEDS ORDERED: MORPHINE SULFATE 4 MG/ML, 1ML ONE (18:11)
[2020-05-31] MEDS: morphine SULFATE 10 MG/ML, 1ML IVPush PRN ×2 (18:15→21:19)
[2020-05-31] MEDS: CEFUROXIME 1.5 GM in SODIUM CHLORIDE 0.9% 50 ML IVPB SCH (19:30)
[2020-05-31] MEDS: OXYcodone IR 5MG TABLET PO PRN ×2 (20:44→21:10)
[2020-05-31] MEDS: MUPIROCIN OINT 2%, 22GM NAS SCH (20:51)
[2020-05-31] MEDS: HYDROcodone/APAP 5/325 TABLET PO PRN (23:20)
[2020-05-31] MEDS: MELATONIN 5 MG TABLET PO PRN (23:20)
[2020-06-01] MEDS: HYDROcodone/APAP 5/325 TABLET PO PRN (02:57)
[2020-06-01] MEDS: KSCALE TO 4.5 IV SCH ×2 (03:00→09:00)
[2020-06-01 03:33] LABS: BASOPHILS # (AUTO) 0.02 x10^3/uL (0-0.1); BASOPHILS % (AUTO) 0 % (0-1); EOSINOPHILS # (AUTO) 0.02 x10^3/uL (0-0.4); EOSINOPHILS % (AUTO) 0 % (1-7); LYMPHOCYTES # (AUTO) 0.75 x10^3/uL (1-3.4); LYMPHOCYTES % (AUTO) 8 % (22-44); MD NO; MEAN CORPUSCULAR HEMOGLOBIN 29.9 pg (27.5-34.5); MEAN CORPUSCULAR HGB CONC 33.1 g/dL (33.2-36.2); MEAN PLATELET VOLUME 9.2 fL (7.4-10.4); MONOCYTES # (AUTO) 0.47 x10^3/uL (0.2-0.8); MONOCYTES % (AUTO) 5 % (2-9); NEUTROPHILS # (AUTO) 8.09 x10^3/uL (1.8-6.8); NEUTROPHILS % (AUTO) 87 % (42-75); PLATELET COUNT 129 x10^3/uL (130-400); RED BLOOD COUNT 3.23 x10^6/uL (4.38-5.82); RED CELL DISTRIBUTION WIDTH 14.2 % (9.4-14.8)
[2020-06-01 03:39] LABS: ALBUMIN 2.9 g/dL (3.4-5.0); ANION GAP 8 mmol/L (5-15); CALCIUM 7.4 mg/dL (8.5-10.1); CHLORIDE 116 mmol/L (98-107); CREATININE 0.69 mg/dL (0.7-1.3)
[2020-06-01] MEDS: INSULIN LISPRO 100 UNITS/ML, PEN SQ-INSULIN SCH ×3 (04:00→20:55)
[2020-06-01] MEDS ORDERED: POTASSIUM CHLORIDE PMX 100 ML IV ONE (04:30)
[2020-06-01 05:00] VITALS: BP 109/56
[2020-06-01] MEDS ORDERED: VANCOMYCIN PMX 1GM/200ML 200 ML IVPB ONE (06:00)
[2020-06-01] MEDS: CEFUROXIME 1.5 GM in SODIUM CHLORIDE 0.9% 50 ML IVPB SCH (07:10)
[2020-06-01] MEDS: OXYcodone IR 5MG TABLET PO PRN (08:11)
[2020-06-01] MEDS: MUPIROCIN OINT 2%, 22GM NAS SCH ×2 (09:00→20:46)
[2020-06-01] MEDS: MUPIROCIN OINT 2%, 22GM TP SCH ×2 (09:00→20:46)
[2020-06-01] MEDS: SODIUM CHLORIDE FLUSH 10ML SYR IVF SCH ×4 (09:00→20:45)
[2020-06-01] MEDS: LEVOTHYROXINE 88 MCG TABLET PO SCH (09:00)
[2020-06-01] MEDS ORDERED: FUROSEMIDE 40 MG/4 ML ONE (10:41)
[2020-06-01] MEDS ORDERED: FUROSEMIDE 20 MG/2 ML ONE (10:45)
[2020-06-01] MEDS: ASPIRIN 81 MG TABLET EC PO SCH (10:49)
[2020-06-01] MEDS: FAMOTIDINE 20 MG TABLET PO SCH ×2 (10:49→20:46)
[2020-06-01] MEDS: CLOPIDOGREL 75 MG TABLET PO SCH (10:49)
[2020-06-01] MEDS: DOCUSATE 100 MG CAPSULE PO SCH ×2 (10:49→20:46)
[2020-06-01] MEDS: FUROSEMIDE 20 MG/2 ML IV SCH ×2 (10:50→17:19)
[2020-06-01] MEDS: METOPROLOL TARTRATE 25 MG TAB PO/NG SCH ×2 (10:55→20:45)
[2020-06-01] MEDS: MAGNESIUM SULFATE/D5W 100 ML IVPB SCH (10:55)
[2020-06-01] MEDS ORDERED: KETOROLAC 30 MG/1 ML IVPush PRN (14:00)
[2020-06-01] MEDS: KETOROLAC 30 MG/1 ML IVPush PRN ×2 (14:20→23:17)
[2020-06-01] MEDS ORDERED: POTASSIUM CHLORIDE 10 MEQ TABLET.ER PO SCH (17:00)
[2020-06-01] MEDS: CHLORHEXIDINE 15 ML UDC MM SCH (20:45)
[2020-06-01] MEDS: ATORVASTATIN 80 MG TABLET PO SCH (20:45)
[2020-06-02] MEDS ORDERED: SODIUM CHLORIDE 0.9%, 500ML IVBOLUS ONE ×2 (01:00→17:00)
[2020-06-02 04:47] LABS: BASOPHILS # (AUTO) 0.04 x10^3/uL (0-0.1); BASOPHILS % (AUTO) 0 % (0-1); EOSINOPHILS # (AUTO) 0.01 x10^3/uL (0-0.4); EOSINOPHILS % (AUTO) 0 % (1-7); LYMPHOCYTES # (AUTO) 0.96 x10^3/uL (1-3.4); LYMPHOCYTES % (AUTO) 9 % (22-44); MD NO; MEAN CORPUSCULAR HEMOGLOBIN 30.1 pg (27.5-34.5); MEAN CORPUSCULAR HGB CONC 33.1 g/dL (33.2-36.2); MEAN PLATELET VOLUME 9.6 fL (7.4-10.4); MONOCYTES # (AUTO) 0.55 x10^3/uL (0.2-0.8); MONOCYTES % (AUTO) 5 % (2-9); NEUTROPHILS # (AUTO) 8.55 x10^3/uL (1.8-6.8); NEUTROPHILS % (AUTO) 85 % (42-75); PLATELET COUNT 137 x10^3/uL (130-400); RED BLOOD COUNT 3.51 x10^6/uL (4.38-5.82); RED CELL DISTRIBUTION WIDTH 14.7 % (9.4-14.8)
[2020-06-02 04:58] LABS: ALANINE AMINOTRANSFERASE 22 U/L (12-78); ALBUMIN 2.8 g/dL (3.4-5.0); ANION GAP 3 mmol/L (5-15); CALCIUM 7.8 mg/dL (8.5-10.1); CHLORIDE 114 mmol/L (98-107)
[2020-06-02 05:00] VITALS: BP 140/69
[2020-06-02 05:01] LABS: ALKALINE PHOSPHATASE 57 U/L (45-117); CREATININE 0.86 mg/dL (0.7-1.3); TOTAL PROTEIN 5.5 g/dL (6.4-8.2)
[2020-06-02] MEDS: KETOROLAC 30 MG/1 ML IVPush PRN (05:47)
[2020-06-02] MEDS: LEVOTHYROXINE 88 MCG TABLET PO SCH (05:48)
[2020-06-02] MEDS: INSULIN LISPRO 100 UNITS/ML, PEN SQ-INSULIN SCH ×4 (07:59→21:00)
[2020-06-02] MEDS: ENOXAPARIN 40 MG/0.4 ML SQ SCH (09:35)
[2020-06-02] MEDS: METOPROLOL TARTRATE 25 MG TAB PO/NG SCH ×2 (10:49→21:27)
[2020-06-02] MEDS: ASPIRIN 81 MG TABLET EC PO SCH (10:50)
[2020-06-02] MEDS: CLOPIDOGREL 75 MG TABLET PO SCH (10:50)
[2020-06-02] MEDS: SODIUM CHLORIDE FLUSH 10ML SYR IVF SCH ×4 (10:51→21:26)
[2020-06-02] MEDS: DOCUSATE 100 MG CAPSULE PO SCH ×2 (10:57→21:00)
[2020-06-02] MEDS: FAMOTIDINE 20 MG TABLET PO SCH ×2 (10:57→21:27)
[2020-06-02] MEDS: MUPIROCIN OINT 2%, 22GM NAS SCH ×2 (10:57→21:00)
[2020-06-02] MEDS: CHLORHEXIDINE 15 ML UDC MM SCH ×2 (10:57→21:27)
[2020-06-02] MEDS: MAGNESIUM SULFATE/D5W 100 ML IVPB SCH (10:58)
[2020-06-02] MEDS: MUPIROCIN OINT 2%, 22GM TP SCH ×2 (10:58→21:28)
[2020-06-02] MEDS: ATORVASTATIN 80 MG TABLET PO SCH (21:27)
[2020-06-03 05:00] VITALS: BP 136/64
[2020-06-03 05:12] LABS: BASOPHILS # (AUTO) 0.05 x10^3/uL (0-0.1); BASOPHILS % (AUTO) 1 % (0-1); EOSINOPHILS # (AUTO) 0.06 x10^3/uL (0-0.4); EOSINOPHILS % (AUTO) 1 % (1-7); LYMPHOCYTES # (AUTO) 1.08 x10^3/uL (1-3.4); LYMPHOCYTES % (AUTO) 11 % (22-44); MD NO; MEAN CORPUSCULAR HGB CONC 33.2 g/dL (33.2-36.2); MEAN PLATELET VOLUME 9.7 fL (7.4-10.4); MONOCYTES # (AUTO) 0.44 x10^3/uL (0.2-0.8); MONOCYTES % (AUTO) 5 % (2-9); NEUTROPHILS # (AUTO) 7.84 x10^3/uL (1.8-6.8); NEUTROPHILS % (AUTO) 83 % (42-75); PLATELET COUNT 141 x10^3/uL (130-400); RED BLOOD COUNT 3.32 x10^6/uL (4.38-5.82); RED CELL DISTRIBUTION WIDTH 14.9 % (9.4-14.8)
[2020-06-03 05:15] LABS: ALANINE AMINOTRANSFERASE 19 U/L (12-78); ALBUMIN 2.4 g/dL (3.4-5.0); ANION GAP 4 mmol/L (5-15); BILIRUBIN, DIRECT 0.3 mg/dL (0.1-0.2); CALCIUM 7.6 mg/dL (8.5-10.1); CHLORIDE 117 mmol/L (98-107); CREATININE 0.59 mg/dL (0.7-1.3)
[2020-06-03 05:17] LABS: ALKALINE PHOSPHATASE 67 U/L (45-117); BILIRUBIN,INDIRECT 0.7 mg/dL (0.0-2.0); TOTAL PROTEIN 5.2 g/dL (6.4-8.2)
[2020-06-03] MEDS: LEVOTHYROXINE 88 MCG TABLET PO SCH (06:00)
[2020-06-03] MEDS ORDERED: FUROSEMIDE 20 MG/2 ML IV ONE (07:00)
[2020-06-03] MEDS ORDERED: POTASSIUM CHLORIDE 10% 20 MEQ/15 ML UDC PO ONE (07:00)
[2020-06-03] MEDS: INSULIN LISPRO 100 UNITS/ML, PEN SQ-INSULIN SCH ×2 (07:00→11:00)
[2020-06-03] MEDS ORDERED: MAGNESIUM HYDROXIDE 8%, 30ML UDC PO PRN (09:00)
[2020-06-03] MEDS: MUPIROCIN OINT 2%, 22GM NAS SCH ×2 (09:00→21:32)
[2020-06-03] MEDS: SODIUM CHLORIDE FLUSH 10ML SYR IVF SCH ×3 (09:10→21:00)
[2020-06-03] MEDS: CHLORHEXIDINE 15 ML UDC MM SCH (09:11)
[2020-06-03] MEDS: MUPIROCIN OINT 2%, 22GM TP SCH (09:11)
[2020-06-03] MEDS: ENOXAPARIN 40 MG/0.4 ML SQ SCH (09:12)
[2020-06-03] MEDS: ASPIRIN 81 MG TABLET EC PO SCH (09:13)
[2020-06-03] MEDS: FAMOTIDINE 20 MG TABLET PO SCH ×2 (09:13→21:32)
[2020-06-03] MEDS: METOPROLOL TARTRATE 25 MG TAB PO/NG SCH ×2 (09:13→21:32)
[2020-06-03] MEDS: CLOPIDOGREL 75 MG TABLET PO SCH (09:13)
[2020-06-03] MEDS: DOCUSATE 100 MG CAPSULE PO SCH ×2 (09:13→21:31)
[2020-06-03] MEDS: LOSARTAN 25MG TABLET PO SCH (10:00)
[2020-06-03 14:50] VITALS: BP 133/71
[2020-06-03] MEDS: POTASSIUM CHLORIDE 20 MEQ PACKET PO SCH (18:06)
[2020-06-03] MEDS ORDERED: POTASSIUM ACID PHOSPHATE 500 MG TABLET.SOL NG SCH (18:30)
[2020-06-03 19:45] VITALS: BP 129/71
[2020-06-03] MEDS: POTASSIUM ACID PHOSPHATE 500 MG TABLET.SOL PO SCH (21:32)
[2020-06-03] MEDS: ATORVASTATIN 80 MG TABLET PO SCH (21:32)
[2020-06-03 23:33] VITALS: BP 134/75
[2020-06-04] MEDS: POTASSIUM ACID PHOSPHATE 500 MG TABLET.SOL PO SCH ×3 (02:07→16:31)
[2020-06-04] MEDS: LEVOTHYROXINE 88 MCG TABLET PO SCH (05:18)
[2020-06-04 05:20] LABS: BASOPHILS # (AUTO) 0.02 x10^3/uL (0-0.1); BASOPHILS % (AUTO) 0 % (0-1); EOSINOPHILS % (AUTO) 1 % (1-7); LYMPHOCYTES # (AUTO) 1.12 x10^3/uL (1-3.4); LYMPHOCYTES % (AUTO) 15 % (22-44); MD NO; MEAN CORPUSCULAR HEMOGLOBIN 29.5 pg (27.5-34.5); MEAN CORPUSCULAR HGB CONC 32.4 g/dL (33.2-36.2); MEAN PLATELET VOLUME 9.4 fL (7.4-10.4); MONOCYTES # (AUTO) 0.57 x10^3/uL (0.2-0.8); MONOCYTES % (AUTO) 7 % (2-9); NEUTROPHILS # (AUTO) 5.86 x10^3/uL (1.8-6.8); NEUTROPHILS % (AUTO) 76 % (42-75); PLATELET COUNT 160 x10^3/uL (130-400); RED BLOOD COUNT 3.32 x10^6/uL (4.38-5.82); RED CELL DISTRIBUTION WIDTH 14.9 % (9.4-14.8)
[2020-06-04 05:26] LABS: ANION GAP 5 mmol/L (5-15); CALCIUM 7.9 mg/dL (8.5-10.1); CHLORIDE 116 mmol/L (98-107); CREATININE 0.66 mg/dL (0.7-1.3)
[2020-06-04 06:54] VITALS: BP 142/70
[2020-06-04] MEDS: DOCUSATE 100 MG CAPSULE PO SCH ×2 (09:50→22:01)
[2020-06-04] MEDS: CLOPIDOGREL 75 MG TABLET PO SCH (09:51)
[2020-06-04] MEDS: ASPIRIN 81 MG TABLET EC PO SCH (09:51)
[2020-06-04] MEDS: POTASSIUM CHLORIDE 20 MEQ PACKET PO SCH ×3 (09:51→16:32)
[2020-06-04] MEDS: ENOXAPARIN 40 MG/0.4 ML SQ SCH (09:51)
[2020-06-04] MEDS: SODIUM CHLORIDE FLUSH 10ML SYR IVF SCH ×2 (09:52→22:02)
[2020-06-04] MEDS: MUPIROCIN OINT 2%, 22GM NAS SCH ×2 (09:52→22:02)
[2020-06-04] MEDS: LOSARTAN 25MG TABLET PO SCH (09:54)
[2020-06-04] MEDS: METOPROLOL TARTRATE 25 MG TAB PO/NG SCH ×2 (09:58→22:01)
[2020-06-04 10:09] VITALS: BP 99/60
[2020-06-04] MEDS: FAMOTIDINE 20 MG TABLET PO SCH ×2 (11:26→22:01)
[2020-06-04 12:03] VITALS: BP 132/71
[2020-06-04 21:38] VITALS: BP 130/54
[2020-06-04] MEDS: ATORVASTATIN 80 MG TABLET PO SCH (22:01)
[2020-06-05 01:37] VITALS: BP 114/68
[2020-06-05 05:26] LABS: BASOPHILS # (AUTO) 0.02 x10^3/uL (0-0.1); BASOPHILS % (AUTO) 0 % (0-1); EOSINOPHILS # (AUTO) 0.18 x10^3/uL (0-0.4); EOSINOPHILS % (AUTO) 3 % (1-7); LYMPHOCYTES # (AUTO) 1.09 x10^3/uL (1-3.4); LYMPHOCYTES % (AUTO) 16 % (22-44); MD NO; MEAN CORPUSCULAR HEMOGLOBIN 30.1 pg (27.5-34.5); MEAN CORPUSCULAR HGB CONC 33.3 g/dL (33.2-36.2); MEAN PLATELET VOLUME 9.5 fL (7.4-10.4); MONOCYTES % (AUTO) 9 % (2-9); NEUTROPHILS # (AUTO) 4.82 x10^3/uL (1.8-6.8); NEUTROPHILS % (AUTO) 72 % (42-75); PLATELET COUNT 184 x10^3/uL (130-400); RED BLOOD COUNT 3.36 x10^6/uL (4.38-5.82); RED CELL DISTRIBUTION WIDTH 14.5 % (9.4-14.8)
[2020-06-05 05:46] LABS: ANION GAP 6 mmol/L (5-15); CALCIUM 7.8 mg/dL (8.5-10.1); CHLORIDE 116 mmol/L (98-107)
[2020-06-05 06:38] VITALS: BP 105/52
[2020-06-05] MEDS: LEVOTHYROXINE 88 MCG TABLET PO SCH (06:41)
[2020-06-05] MEDS: FAMOTIDINE 20 MG TABLET PO SCH ×2 (09:25→21:17)
[2020-06-05] MEDS: CLOPIDOGREL 75 MG TABLET PO SCH (09:26)
[2020-06-05] MEDS: ENOXAPARIN 40 MG/0.4 ML SQ SCH (09:26)
[2020-06-05] MEDS: ASPIRIN 81 MG TABLET EC PO SCH (09:26)
[2020-06-05] MEDS: POTASSIUM CHLORIDE 20 MEQ PACKET PO SCH ×3 (09:26→16:43)
[2020-06-05] MEDS: LOSARTAN 25MG TABLET PO SCH (09:26)
[2020-06-05] MEDS: METOPROLOL TARTRATE 25 MG TAB PO/NG SCH ×2 (09:26→21:18)
[2020-06-05] MEDS: DOCUSATE 100 MG CAPSULE PO SCH ×2 (09:26→21:17)
[2020-06-05] MEDS: SODIUM CHLORIDE FLUSH 10ML SYR IVF SCH ×2 (09:27→21:18)
[2020-06-05] MEDS: MUPIROCIN OINT 2%, 22GM NAS SCH (09:28)
[2020-06-05] MEDS ORDERED: SODIUM CHLORIDE 0.9%, 250ML IVBOLUS ONE (11:30)
[2020-06-05] MEDS ORDERED: ALBUMIN HUMAN 25% 100 ML IV ONE (11:30)
[2020-06-05 12:46] VITALS: BP 107/59
[2020-06-05 18:26] VITALS: BP 133/72
[2020-06-05 18:42] VITALS: BP 118/70
[2020-06-05 18:43] VITALS: BP 158/74
[2020-06-05] MEDS: ATORVASTATIN 80 MG TABLET PO SCH (21:18)
[2020-06-06] VITALS: BP 136/68
[2020-06-06 05:28] LABS: ANION GAP 7 mmol/L (5-15); CHLORIDE 114 mmol/L (98-107); CREATININE 0.45 mg/dL (0.7-1.3)
[2020-06-06] MEDS: LEVOTHYROXINE 88 MCG TABLET PO SCH (06:15)
[2020-06-06] MEDS ORDERED: SODIUM CHLORIDE 0.9%, 250ML IVBOLUS ONE (08:00)
[2020-06-06] MEDS ORDERED: LORazepam 2 MG/ML, 1ML IVPush ONE (08:30)
[2020-06-06 09:00] VITALS: BP 119/58
[2020-06-06] MEDS: ENOXAPARIN 40 MG/0.4 ML SQ SCH (09:00)
[2020-06-06] MEDS ORDERED: POTASSIUM CHLORIDE 10 MEQ in LACTATED RINGERS 1,000 ML IV SCH (09:30)
[2020-06-06] MEDS: FAMOTIDINE 20 MG TABLET PO SCH ×2 (10:02→23:00)
[2020-06-06] MEDS: POTASSIUM CHLORIDE 20 MEQ PACKET PO SCH ×3 (10:02→17:00)
[2020-06-06] MEDS: CLOPIDOGREL 75 MG TABLET PO SCH (10:02)
[2020-06-06] MEDS: METOPROLOL TARTRATE 25 MG TAB PO/NG SCH ×2 (10:02→22:40)
[2020-06-06] MEDS: LOSARTAN 50MG TABLET PO SCH (10:02)
[2020-06-06] MEDS: ASPIRIN 81 MG TABLET EC PO SCH (10:02)
[2020-06-06] MEDS: DOCUSATE 100 MG CAPSULE PO SCH ×2 (10:02→22:00)
[2020-06-06] MEDS: SODIUM CHLORIDE FLUSH 10ML SYR IVF SCH ×2 (10:03→23:00)
[2020-06-06 13:30] VITALS: BP 127/70
[2020-06-06 18:58] VITALS: BP 133/74
[2020-06-06] MEDS: ATORVASTATIN 80 MG TABLET PO SCH (22:43)
[2020-06-07 00:03] VITALS: BP 128/66
[2020-06-07] MEDS: LEVOTHYROXINE 88 MCG TABLET PO SCH ×2 (06:00→19:43)
[2020-06-07 06:55] VITALS: BP 147/73
[2020-06-07 06:55] LABS: CHLORIDE 111 mmol/L (98-107)
[2020-06-07 07:01] LABS: ANION GAP 6 mmol/L (5-15); CALCIUM 8.2 mg/dL (8.5-10.1); CREATININE 0.51 mg/dL (0.7-1.3)
[2020-06-07] MEDS: POTASSIUM CHLORIDE 20 MEQ PACKET PO SCH ×3 (08:00→16:45)
[2020-06-07] MEDS: LOSARTAN 50MG TABLET PO SCH (09:00)
[2020-06-07] MEDS: METOPROLOL TARTRATE 25 MG TAB PO/NG SCH ×2 (09:00→19:42)
[2020-06-07] MEDS: ENOXAPARIN 40 MG/0.4 ML SQ SCH (09:00)
[2020-06-07] MEDS: ASPIRIN 81 MG TABLET EC PO SCH (09:00)
[2020-06-07] MEDS: DOCUSATE 100 MG CAPSULE PO SCH ×2 (09:00→19:42)
[2020-06-07] MEDS: CLOPIDOGREL 75 MG TABLET PO SCH (09:00)
[2020-06-07] MEDS: FAMOTIDINE 20 MG TABLET PO SCH ×2 (09:00→19:42)
[2020-06-07] MEDS: SODIUM CHLORIDE FLUSH 10ML SYR IVF SCH ×2 (09:00→20:31)
[2020-06-07] MEDS: POTASSIUM CHLORIDE 10 MEQ in LACTATED RINGERS 1,000 ML IV SCH (09:52)
[2020-06-07 14:11] VITALS: BP 124/66
[2020-06-07 18:46] VITALS: BP 118/63
[2020-06-07] MEDS: ATORVASTATIN 80 MG TABLET PO SCH (19:42)
[2020-06-08] MEDS: POTASSIUM CHLORIDE 10 MEQ in LACTATED RINGERS 1,000 ML IV SCH (02:01)
[2020-06-08 02:08] VITALS: BP 135/78
[2020-06-08 06:25] LABS: BASOPHILS # (AUTO) 0.05 x10^3/uL (0-0.1); BASOPHILS % (AUTO) 1 % (0-1); EOSINOPHILS # (AUTO) 0.29 x10^3/uL (0-0.4); EOSINOPHILS % (AUTO) 4 % (1-7); LYMPHOCYTES # (AUTO) 1.17 x10^3/uL (1-3.4); LYMPHOCYTES % (AUTO) 16 % (22-44); MD NO; MEAN CORPUSCULAR HEMOGLOBIN 29.6 pg (27.5-34.5); MEAN CORPUSCULAR HGB CONC 32.8 g/dL (33.2-36.2); MEAN PLATELET VOLUME 8.5 fL (7.4-10.4); MONOCYTES # (AUTO) 0.52 x10^3/uL (0.2-0.8); MONOCYTES % (AUTO) 7 % (2-9); NEUTROPHILS # (AUTO) 5.53 x10^3/uL (1.8-6.8); NEUTROPHILS % (AUTO) 73 % (42-75); PLATELET COUNT 345 x10^3/uL (130-400); RED BLOOD COUNT 3.44 x10^6/uL (4.38-5.82); RED CELL DISTRIBUTION WIDTH 14.1 % (9.4-14.8)
[2020-06-08 06:31] LABS: ANION GAP 7 mmol/L (5-15); CALCIUM 8.2 mg/dL (8.5-10.1); CHLORIDE 111 mmol/L (98-107); CREATININE 0.41 mg/dL (0.7-1.3)
[2020-06-08] MEDS: ENOXAPARIN 40 MG/0.4 ML SQ SCH (09:00)
[2020-06-08] MEDS: DOCUSATE 100 MG CAPSULE PO SCH ×2 (09:00→21:00)
[2020-06-08] MEDS: ASPIRIN 81 MG TABLET EC PO SCH (09:00)
[2020-06-08] MEDS: SODIUM CHLORIDE FLUSH 10ML SYR IVF SCH ×3 (09:19→21:35)
[2020-06-08 09:20] VITALS: BP 125/80
[2020-06-08] MEDS: POTASSIUM CHLORIDE 20 MEQ PACKET PO SCH ×3 (12:00→21:00)
[2020-06-08 12:45] VITALS: BP 118/68
[2020-06-08] MEDS ORDERED: GLUCAGON 1 MG IM ONE (13:00)
[2020-06-08] MEDS ORDERED: DEXTROSE 50%, 50ML SYRINGE ONE (13:08)
[2020-06-08] MEDS ORDERED: DEXTROSE 50%, 50ML SYRINGE IVPush PRN (13:30)
[2020-06-08] MEDS ORDERED: GLUCAGON 1 MG IM PRN (13:30)
[2020-06-08] MEDS ORDERED: DEXTROSE 4 GM TAB.CHEW PO PRN (13:30)
[2020-06-08] MEDS ORDERED: DEXTROSE 50%, 50ML SYRINGE IVPush ONE (13:30)
[2020-06-08] MEDS ORDERED: SODIUM CHLORIDE 0.9%, 500ML IVBOLUS ONE (14:00)
[2020-06-08] MEDS ORDERED: D5%-LACTATED RINGERS 500 ML IV SCH (14:00)
[2020-06-08 14:37] VITALS: BP 121/64
[2020-06-08] MEDS: D5%-LACTATED RINGERS 1,000 ML IV SCH (14:39)
[2020-06-08] MEDS: PIPERACILLIN/TAZO/PMX 3.375GM 50 ML IV SCH ×2 (14:39→21:35)
[2020-06-08 16:00] LABS: MICROSCOPIC INDICATED
[2020-06-08] MEDS: METOPROLOL TARTRATE 25 MG TAB PO/NG SCH ×2 (16:36→21:00)
[2020-06-08] MEDS: CLOPIDOGREL 75 MG TABLET PO SCH (16:37)
[2020-06-08] MEDS: LOSARTAN 50MG TABLET PO SCH (16:37)
[2020-06-08] MEDS: LEVOTHYROXINE 88 MCG TABLET PO SCH (16:37)
[2020-06-08] MEDS: FAMOTIDINE 20 MG TABLET PO SCH (16:38)
[2020-06-08] MEDS ORDERED: SODIUM CHLORIDE 0.9%, 250ML IVBOLUS ONE (18:00)
[2020-06-08] MEDS ORDERED: ALBUMIN HUMAN 25% 100 ML IV ONE (18:00)
[2020-06-08 18:33] VITALS: BP 110/62
[2020-06-08 19:10] LABS: TROPONIN I 0.065 ng/mL (0.000-0.045)
[2020-06-08] MEDS: ATORVASTATIN 80 MG TABLET PO SCH (21:00)
[2020-06-09] MEDS: D5%-LACTATED RINGERS 1,000 ML IV SCH ×3 (00:19→22:40)
[2020-06-09] MEDS: PIPERACILLIN/TAZO/PMX 3.375GM 50 ML IV SCH ×4 (02:46→20:02)
[2020-06-09 05:53] LABS: ANION GAP 6 mmol/L (5-15); CALCIUM 7.5 mg/dL (8.5-10.1); CHLORIDE 111 mmol/L (98-107); CREATININE 0.55 mg/dL (0.7-1.3)
[2020-06-09 06:06] LABS: BASOPHILS # (AUTO) 0.03 x10^3/uL (0-0.1); BASOPHILS % (AUTO) 0 % (0-1); EOSINOPHILS # (AUTO) 0.33 x10^3/uL (0-0.4); EOSINOPHILS % (AUTO) 4 % (1-7); LYMPHOCYTES % (AUTO) 11 % (22-44); MD NO; MEAN CORPUSCULAR HEMOGLOBIN 29.7 pg (27.5-34.5); MEAN CORPUSCULAR HGB CONC 32.9 g/dL (33.2-36.2); MEAN PLATELET VOLUME 8.5 fL (7.4-10.4); MONOCYTES # (AUTO) 0.56 x10^3/uL (0.2-0.8); MONOCYTES % (AUTO) 6 % (2-9); NEUTROPHILS # (AUTO) 6.94 x10^3/uL (1.8-6.8); NEUTROPHILS % (AUTO) 78 % (42-75); PLATELET COUNT 351 x10^3/uL (130-400); RED BLOOD COUNT 3.19 x10^6/uL (4.38-5.82); RED CELL DISTRIBUTION WIDTH 14.3 % (9.4-14.8)
[2020-06-09 07:16] VITALS: BP 110/65
[2020-06-09] MEDS: DOCUSATE 100 MG CAPSULE PO SCH ×2 (09:27→20:01)
[2020-06-09] MEDS: ENOXAPARIN 40 MG/0.4 ML SQ SCH (09:27)
[2020-06-09] MEDS: ASPIRIN 81 MG TABLET EC PO SCH (09:27)
[2020-06-09] MEDS: CLOPIDOGREL 75 MG TABLET PO SCH (09:28)
[2020-06-09] MEDS: METOPROLOL TARTRATE 25 MG TAB PO/NG SCH ×2 (09:28→20:01)
[2020-06-09] MEDS: LEVOTHYROXINE 88 MCG TABLET PO SCH (09:28)
[2020-06-09] MEDS: SODIUM CHLORIDE FLUSH 10ML SYR IVF SCH ×4 (09:36→20:02)
[2020-06-09] MEDS: POTASSIUM CHLORIDE 20 MEQ PACKET PO SCH ×3 (09:37→18:03)
[2020-06-09 13:59] VITALS: BP 110/63
[2020-06-09 18:41] VITALS: BP 111/67
[2020-06-09] MEDS: ATORVASTATIN 80 MG TABLET PO SCH (20:01)
[2020-06-10] MEDS: PIPERACILLIN/TAZO/PMX 3.375GM 50 ML IV SCH ×4 (01:50→22:20)
[2020-06-10 01:58] VITALS: BP 108/58
[2020-06-10 05:04] LABS: ANION GAP 5 mmol/L (5-15); CALCIUM 7.4 mg/dL (8.5-10.1); CHLORIDE 110 mmol/L (98-107); CREATININE 0.62 mg/dL (0.7-1.3)
[2020-06-10 05:05] LABS: BASOPHILS # (AUTO) 0.06 x10^3/uL (0-0.1); BASOPHILS % (AUTO) 1 % (0-1); EOSINOPHILS # (AUTO) 0.56 x10^3/uL (0-0.4); EOSINOPHILS % (AUTO) 5 % (1-7); LYMPHOCYTES # (AUTO) 1.76 x10^3/uL (1-3.4); LYMPHOCYTES % (AUTO) 15 % (22-44); MD NO; MEAN CORPUSCULAR HEMOGLOBIN 29.7 pg (27.5-34.5); MEAN CORPUSCULAR HGB CONC 32.9 g/dL (33.2-36.2); MEAN PLATELET VOLUME 8.7 fL (7.4-10.4); MONOCYTES # (AUTO) 0.57 x10^3/uL (0.2-0.8); MONOCYTES % (AUTO) 5 % (2-9); NEUTROPHILS # (AUTO) 9.11 x10^3/uL (1.8-6.8); NEUTROPHILS % (AUTO) 76 % (42-75); PLATELET COUNT 371 x10^3/uL (130-400); RED BLOOD COUNT 3.17 x10^6/uL (4.38-5.82); RED CELL DISTRIBUTION WIDTH 14.6 % (9.4-14.8)
[2020-06-10 06:30] VITALS: BP 135/68
[2020-06-10] MEDS: SODIUM CHLORIDE FLUSH 10ML SYR IVF SCH ×4 (09:00→22:21)
[2020-06-10] MEDS: ENOXAPARIN 40 MG/0.4 ML SQ SCH (09:33)
[2020-06-10] MEDS: ASPIRIN 81 MG TABLET EC PO SCH (09:43)
[2020-06-10] MEDS: DOCUSATE 100 MG CAPSULE PO SCH (09:43)
[2020-06-10] MEDS: METOPROLOL TARTRATE 25 MG TAB PO/NG SCH ×2 (09:43→22:21)
[2020-06-10] MEDS: CLOPIDOGREL 75 MG TABLET PO SCH (09:43)
[2020-06-10] MEDS: POTASSIUM CHLORIDE 20 MEQ PACKET PO SCH ×3 (09:44→17:40)
--- NOTE | 2020-06-10 11:22 | NUR ---
Tube-feeding Goal: Jevity 1.2 at 70ml/hour
[2020-06-10] MEDS: D5%-LACTATED RINGERS 1,000 ML IV SCH (11:51)
[2020-06-10 14:03] VITALS: BP 114/65
[2020-06-10 19:09] VITALS: BP 136/70
[2020-06-10] MEDS: ATORVASTATIN 80 MG TABLET PO SCH (22:20)
[2020-06-10] MEDS: DOCUSATE 50 MG/5 ML, 10ML UDC PO SCH (22:30)
[2020-06-10 23:08] VITALS: BP 144/83
[2020-06-11] MEDS: D5%-LACTATED RINGERS 1,000 ML IV SCH ×2 (01:01→08:13)
[2020-06-11 04:58] LABS: ANION GAP 6 mmol/L (5-15); BASOPHILS # (AUTO) 0.03 x10^3/uL (0-0.1); BASOPHILS % (AUTO) 0 % (0-1); CALCIUM 7.3 mg/dL (8.5-10.1); CHLORIDE 110 mmol/L (98-107); CREATININE 0.53 mg/dL (0.7-1.3); EOSINOPHILS # (AUTO) 0.33 x10^3/uL (0-0.4); EOSINOPHILS % (AUTO) 4 % (1-7); LYMPHOCYTES # (AUTO) 1.27 x10^3/uL (1-3.4); LYMPHOCYTES % (AUTO) 14 % (22-44); MD NO; MEAN CORPUSCULAR HEMOGLOBIN 28.7 pg (27.5-34.5); MEAN CORPUSCULAR HGB CONC 31.5 g/dL (33.2-36.2); MEAN PLATELET VOLUME 8.4 fL (7.4-10.4); MONOCYTES # (AUTO) 0.47 x10^3/uL (0.2-0.8); MONOCYTES % (AUTO) 5 % (2-9); NEUTROPHILS # (AUTO) 7.06 x10^3/uL (1.8-6.8); NEUTROPHILS % (AUTO) 77 % (42-75); PLATELET COUNT 425 x10^3/uL (130-400); RED BLOOD COUNT 3.14 x10^6/uL (4.38-5.82)
[2020-06-11] MEDS: LEVOTHYROXINE 88 MCG TABLET PO SCH (05:54)
[2020-06-11] MEDS: PIPERACILLIN/TAZO/PMX 3.375GM 50 ML IV SCH ×3 (05:54→17:35)
[2020-06-11 06:35] VITALS: BP 134/67
[2020-06-11] MEDS: POTASSIUM CHLORIDE 20 MEQ PACKET PO SCH ×3 (08:02→17:35)
[2020-06-11] MEDS: DOCUSATE 50 MG/5 ML, 10ML UDC PO SCH ×2 (08:02→19:23)
[2020-06-11] MEDS: ASPIRIN 81 MG TABLET EC PO SCH (08:02)
[2020-06-11] MEDS: CLOPIDOGREL 75 MG TABLET PO SCH (08:03)
[2020-06-11] MEDS: METOPROLOL TARTRATE 25 MG TAB PO/NG SCH ×2 (08:03→21:04)
[2020-06-11] MEDS: SODIUM CHLORIDE FLUSH 10ML SYR IVF SCH ×4 (08:03→21:05)
[2020-06-11] MEDS: ENOXAPARIN 40 MG/0.4 ML SQ SCH (08:04)
[2020-06-11 12:27] VITALS: BP 136/68
[2020-06-11 18:17] VITALS: BP 144/71
[2020-06-11] MEDS: MELATONIN 5 MG TABLET PO PRN (21:03)
[2020-06-11] MEDS: ATORVASTATIN 80 MG TABLET PO SCH (21:03)
[2020-06-11] MEDS: D5%-0.9% NACL 1,000 ML IV SCH (21:09)
[2020-06-12] MEDS: PIPERACILLIN/TAZO/PMX 3.375GM 50 ML IV SCH ×3 (00:31→12:10)
[2020-06-12 01:12] VITALS: BP 154/78
[2020-06-12] MEDS: LEVOTHYROXINE 88 MCG TABLET PO SCH (05:36)
[2020-06-12 06:32] LABS: BASOPHILS # (AUTO) 0.03 x10^3/uL (0-0.1); BASOPHILS % (AUTO) 0 % (0-1); EOSINOPHILS # (AUTO) 0.35 x10^3/uL (0-0.4); EOSINOPHILS % (AUTO) 2 % (1-7); LYMPHOCYTES % (AUTO) 8 % (22-44); MD NO; MEAN CORPUSCULAR HEMOGLOBIN 29.4 pg (27.5-34.5); MEAN CORPUSCULAR HGB CONC 32.5 g/dL (33.2-36.2); MEAN PLATELET VOLUME 8.4 fL (7.4-10.4); MONOCYTES # (AUTO) 0.56 x10^3/uL (0.2-0.8); MONOCYTES % (AUTO) 4 % (2-9); NEUTROPHILS # (AUTO) 12.27 x10^3/uL (1.8-6.8); NEUTROPHILS % (AUTO) 85 % (42-75); PLATELET COUNT 433 x10^3/uL (130-400); RED BLOOD COUNT 3.08 x10^6/uL (4.38-5.82); RED CELL DISTRIBUTION WIDTH 14.4 % (9.4-14.8)
[2020-06-12 06:43] LABS: ANION GAP 6 mmol/L (5-15); CALCIUM 7.3 mg/dL (8.5-10.1); CHLORIDE 108 mmol/L (98-107); CREATININE 0.47 mg/dL (0.7-1.3)
[2020-06-12 06:47] VITALS: BP 124/68
[2020-06-12] MEDS: SODIUM CHLORIDE FLUSH 10ML SYR IVF SCH ×2 (09:00→10:16)
[2020-06-12] MEDS ORDERED: SERTRALINE 50MG TABLET PO SCH (09:00)
[2020-06-12] MEDS: ASPIRIN 81 MG TABLET EC PO SCH (10:07)
[2020-06-12] MEDS: CLOPIDOGREL 75 MG TABLET PO SCH (10:07)
[2020-06-12] MEDS: POTASSIUM CHLORIDE 20 MEQ PACKET PO SCH ×2 (10:07→12:10)
[2020-06-12] MEDS: ENOXAPARIN 40 MG/0.4 ML SQ SCH (10:07)
[2020-06-12] MEDS: METOPROLOL TARTRATE 25 MG TAB PO/NG SCH (10:08)
[2020-06-12] MEDS: DOCUSATE 50 MG/5 ML, 10ML UDC PO SCH (10:14)
[2020-06-12] MEDS: D5%-0.9% NACL 1,000 ML IV SCH (10:16)
[2020-06-12] MEDS ORDERED: METO25TA35 PO/NG (12:05)
[2020-06-12] MEDS ORDERED: CLOP75TA PO (12:05)
[2020-06-12] MEDS ORDERED: POTA20PA25 PO (12:05)
[2020-06-12] MEDS ORDERED: ONDA4VIA60 IVPush (12:05)
[2020-06-12] MEDS ORDERED: ACET325T26 PO (12:05)
[2020-06-12] MEDS ORDERED: ENOX40SY4 SQ (12:05)
[2020-06-12] MEDS ORDERED: ASPI81TA45 PO (12:05)
[2020-06-12] MEDS ORDERED: PIPE3.373 IV (12:05)
[2020-06-12] MEDS ORDERED: DOCU50LI26 PO (12:05)
[2020-06-12] MEDS ORDERED: ATOR-2 PO (12:05)
[2020-06-12 14:11] VITALS: BP 130/70
== END 2020-06-12 15:16 | DRG 233 ==
LOC: ED 11:41 → EDIP 11:54 → 5SO 12:51 → CSU 05-31 07:33 → 5SO 06-03 12:56
PROVIDERS: ADMIT Hospitalist; ATTEND Hospitalist
PROC: 4A023N7 Measurement of Cardiac Sampling and Pressure, Left Heart, Percutaneous Approach (ICD-10-PCS; principal; 2020-05-30)
PROC: B2111ZZ Fluoroscopy of Multiple Coronary Arteries using Low Osmolar Contrast (ICD-10-PCS; 2020-05-30)
PROC: B2151ZZ Fluoroscopy of Left Heart using Low Osmolar Contrast (ICD-10-PCS; 2020-05-30)
PROC: 021209W Bypass Coronary Artery, Three Arteries from Aorta with Autologous Venous Tissue, Open Approach (ICD-10-PCS; 2020-05-31)
PROC: 02100Z9 Bypass Coronary Artery, One Artery from Left Internal Mammary, Open Approach (ICD-10-PCS; 2020-05-31)
PROC: 06BQ4ZZ Excision of Left Saphenous Vein, Percutaneous Endoscopic Approach (ICD-10-PCS; 2020-05-31)
PROC: 06BP4ZZ Excision of Right Saphenous Vein, Percutaneous Endoscopic Approach (ICD-10-PCS; 2020-05-31)
PROC: 5A1221Z Performance of Cardiac Output, Continuous (ICD-10-PCS; 2020-05-31)
PROC: B246ZZ4 Ultrasonography of Right and Left Heart, Transesophageal (ICD-10-PCS; 2020-05-31)
PROC: 0T9B70Z Drainage of Bladder with Drainage Device, Via Natural or Artificial Opening (ICD-10-PCS; 2020-06-08)
DX: I25.110 Atherosclerotic heart disease of native coronary artery with unstable angina pectoris (principal); G93.41 Metabolic encephalopathy; J69.0 Pneumonitis due to inhalation of food and vomit; E46 Unspecified protein-calorie malnutrition; J93.9 Pneumothorax, unspecified; F05 Delirium due to known physiological condition; N39.0 Urinary tract infection, site not specified; Z66 Do not resuscitate; G89.18 Other acute postprocedural pain; I10 Essential (primary) hypertension; E78.5 Hyperlipidemia, unspecified; E03.9 Hypothyroidism, unspecified; I65.23 Occlusion and stenosis of bilateral carotid arteries; E11.51 Type 2 diabetes mellitus with diabetic peripheral angiopathy without gangrene; E86.0 Dehydration; Z20.828 Contact with and (suspected) exposure to other viral communicable diseases; R13.10 Dysphagia, unspecified; Z78.1 Physical restraint status; Z79.02 Long term (current) use of antithrombotics/antiplatelets; Z79.82 Long term (current) use of aspirin; Z79.899 Other long term (current) drug therapy; Z82.49 Family history of ischemic heart disease and other diseases of the circulatory system; Z86.73 Personal history of transient ischemic attack (TIA), and cerebral infarction without residual deficits; Z87.891 Personal history of nicotine dependence; Z68.22 Body mass index [BMI] 22.0-22.9, adult; D50.0 Iron deficiency anemia secondary to blood loss (chronic)
CPT/HCPCS: 36415; 36600; 70450; 71045; 74018; 74230; 80048; 80053; 80061; 80076; 81001; 82040; 82330; 82800; 82803; 82810; 82947; 82962; 83036; 83605; 83690; 83735; 83880; 84100; 84132; 84295; 84439; 84443; 84484; 85014; 85018; 85025; 85049; 85347; 85520; 85610; 85651; 85730; 86850; 86900; 86923; 87040; 87081; 87086; 87635; 93005; 93306; 93312; 93321; 93325; 93458; 93880; 93970; 94002; 99156; 99285; C1769; C1894; G0378; J0171; J0583; J0697; J1644; J1650; J1815; J1885; J2250; J2543; J2704; J2720; J3010; J3370; J3475; J3480; J7042; P9045; P9047; C1751; C1760; J0282; J1610; J1940; J2060; J2270; J2370; J2440; J7030; J7040; J7050; J7120; J7121; Q9967